=== PATIENT | male | born 1955 | race Caucasian/White ===

== ENCOUNTER 2018-01-17 14:54 | Inpatient (IN) | payer MEDICARE, MEDICAID ==
[~2018-01-17] VITALS: Ht 167.6 cm; Wt 140.0 kg
[2018-01-17] MEDS ORDERED: thiamine 100mg/ml 2ml inj. IV ONE (15:40)
[2018-01-17] MEDS ORDERED: normal saline 1000ml 1,000 ML IV ONE (15:40)
[2018-01-17 16:40] LABS: CLARITY,URINE CLEAR (Clear); COLOR,URINE YELLOW (Yellow); GLUCOSE, URINE NEGATIVE (Neg); KETONES,URINE NEGATIVE (Neg); LEUKOCYTE ESTERASE ,URINE NEGATIVE (Neg); NITRITES, URINE NEGATIVE (Neg); OCCULT BLOOD,URINE NEGATIVE (Neg); PROTEIN,URINE NEGATIVE (Neg); UA COLLECTION TYPE CLN CATCH MIDSTREAM
[2018-01-17 16:42] LABS: BASOPHILS % (AUTO) 0.2 % (0-1); EOSINOPHILS # (AUTO) 0.1 X10'3 (0-0.9); HEMOGLOBIN 13.6 g/dl (14.0-17.9); LYMPHOCYTES # (AUTO) 1.2 X10'3 (1.1-4.8); LYMPHOCYTES % (AUTO) 8.4 % (21-51); MEAN CORPUSCULAR HGB CONC 32.4 % (33.0-36.5); MEAN CORPUSCULAR VOLUME 83.3 FL (78-98); MEAN PLATELET VOLUME 9.1 FL (7.4-10.4); MONOCYTES # (AUTO) 0.5 X10'3 (0-0.9); MONOCYTES % (AUTO) 3.7 % (2-12); NEUTROPHILS % (AUTO) 86.7 % (42-75); PLATELET COUNT 240 X10'3 (140-440); RED BLOOD COUNT 5.04 X10'6 (4.70-6.10); RED CELL DISTRIBUTION WIDTH 15.4 % (11.5-14.5); WHITE BLOOD COUNT 13.9 X10'3 (4.5-11.0)
[2018-01-17 16:50] LABS: URINE AMPHETAMINE SCREEN NEGATIVE (Neg); URINE BARBITUATE SCREEN NEGATIVE (Neg); URINE BENZODIAZEPINES SCREEN NEGATIVE (Neg); URINE CANNABINOID SCREEN POSITIVE (Neg); URINE COCAINE SCREEN NEGATIVE (Neg); URINE METHADONE SCREEN NEGATIVE (Neg); URINE OPIATE SCREEN NEGATIVE (Neg); URINE PHENCYCLIDINE SCREEN NEGATIVE (Neg)
[2018-01-17 16:54] LABS: PARTIAL THROMBOPLASTIN TIME 25 SECONDS (22-32)
[2018-01-17 17:07] LABS: ALANINE AMINOTRANSFERASE 40 U/L (12-78); ALBUMIN 3.1 G/DL (3.4-5.0); ALBUMIN/GLOBULIN RATIO 0.7 (1.1-1.5); ALKALINE PHOSPHATASE 146 IU/L (46-116); ANION GAP 8 (8-16); ASPARTATE AMINO TRANSFERASE 24 U/L (10-37); BILIRUBIN,TOTAL 0.2 MG/DL (0.1-1.0); BLOOD UREA NITROGEN 17 MG/DL (7-18); BUN/CREATININE RATIO 16.7 (5.4-32.0); CALCIUM 9.1 MG/DL (8.5-10.1); CHLORIDE 104 MMOL/L (99-107); CREATINE KINASE 55 U/L (39-308); CREATININE 1.02 MG/DL (0.60-1.10); ETHANOL < 0.010 GM/DL (0.0-0.010); GLUCOSE 116 MG/DL (70-104); POTASSIUM 4.5 MMOL/L (3.5-5.1); SODIUM 140 MMOL/L (135-145); TOTAL CARBON DIOXIDE 27.9 MMOL/L (24-32); TOTAL PROTEIN 7.4 G/DL (6.4-8.2); eGFR 74 ML/MIN
[2018-01-17] MEDS ORDERED: iohexol 350MG/ML 100ml bottle IV ONE (18:07)
[2018-01-17] MEDS ORDERED: ondansetron/PF 4mg/2ml inj IV ONE (21:00)
[2018-01-17] MEDS ORDERED: temazepam 15mg capsule PO PRN (21:00)
[2018-01-17] MEDS ORDERED: acetaminophen 325mg tablet PO PRN ×2 (22:00)
[2018-01-17] MEDS ORDERED: bisacodyl 10mg suppository rectal RC PRN (22:00)
[2018-01-17] MEDS ORDERED: acetaminophen 650mg rectal suppository RC PRN (22:00)
[2018-01-17] MEDS ORDERED: magnesium hydroxide 30ml (MOM) UD suspension PO PRN (22:00)
[2018-01-17] MEDS ORDERED: diphenhydrAMINE 25mg capsule PO PRN (22:00)
[2018-01-17] MEDS ORDERED: metoprolol tartrate 1mg/ml inj IV PRN (22:00)
[2018-01-17] MEDS ORDERED: diphenhydrAMINE 50 mg/ml inj IV PRN (22:00)
[2018-01-17] MEDS ORDERED: mag hydrox/Alum hydrox/simeth 30ml oral suspension PO PRN (22:00)
[2018-01-17] MEDS ORDERED: HYDROmorphone 1 mg/ml syringe IV PRN (22:00)
[2018-01-17] MEDS ORDERED: morphine 2 MG/ML inj. syringe IV PRN (22:00)
[2018-01-17] MEDS ORDERED: hydrALAZINE 20mg/ml inj. IV PRN (22:00)
[2018-01-17] MEDS ORDERED: UNABLE TO OBTAIN (22:19)
[2018-01-17 22:36] LABS: HEMOGLOBIN A1C 5.9 % (4.5-6.2)
[2018-01-17] MEDS: normal saline 1000ml 1,000 ML IV SCH (22:40)
[2018-01-17] MEDS: aspirin 81mg tab.chew PO SCH (22:40)
[2018-01-17 22:50] LABS: PARTIAL THROMBOPLASTIN TIME 24 SECONDS (22-32); PROTHROMBIN TIME 10.1 SECONDS (9.0-12.0)
[2018-01-17 23:00] LABS: MAGNESIUM 1.9 MG/DL (1.5-2.4); PHOSPHORUS 3.6 MG/DL (2.3-4.5)
[2018-01-18] VITALS (7 sets, daily range): BP systolic 127–183; BP diastolic 62–110
[2018-01-18] MEDS: HYDROcodone/acetaminophen 10/325mg tab PO PRN (06:02)
[2018-01-18 06:50] LABS: BASOPHILS # (AUTO) 0.1 X10'3 (0-0.2); BASOPHILS % (AUTO) 0.6 % (0-1); EOSINOPHILS # (AUTO) 0.3 X10'3 (0-0.9); EOSINOPHILS % (AUTO) 2.9 % (0-6); HEMATOCRIT 38.2 % (42.0-52.0); HEMOGLOBIN 12.5 g/dl (14.0-17.9); LYMPHOCYTES # (AUTO) 2.2 X10'3 (1.1-4.8); LYMPHOCYTES % (AUTO) 21.7 % (21-51); MEAN CORPUSCULAR HEMOGLOBIN 27.4 PG (27.0-31.0); MEAN CORPUSCULAR HGB CONC 32.8 % (33.0-36.5); MEAN CORPUSCULAR VOLUME 83.4 FL (78-98); MEAN PLATELET VOLUME 9.7 FL (7.4-10.4); MONOCYTES # (AUTO) 0.8 X10'3 (0-0.9); MONOCYTES % (AUTO) 8.2 % (2-12); NEUTROPHILS # (AUTO) 6.9 X10'3 (1.8-7.7); NEUTROPHILS % (AUTO) 66.6 % (42-75); PLATELET COUNT 225 X10'3 (140-440); RED BLOOD COUNT 4.58 X10'6 (4.70-6.10); RED CELL DISTRIBUTION WIDTH 15.8 % (11.5-14.5); WHITE BLOOD COUNT 10.3 X10'3 (4.5-11.0)
[2018-01-18] MEDS: nicotine 21mg patch - 24 hr TD SCH (08:00)
[2018-01-18] MEDS: aspirin 81mg tab.chew PO SCH ×2 (08:00→12:30)
[2018-01-18] MEDS: docusate sod 100mg capsule PO SCH ×2 (08:00→22:28)
[2018-01-18] MEDS: nitroGLYCERIN 0.4mg/hour patch TD SCH (08:00)
[2018-01-18] MEDS: metoprolol tartrate 12.5mg (1/2 tablet) PO SCH ×2 (08:00→22:27)
[2018-01-18] MEDS ORDERED: atorvastatin 10mg tablet PO SCH (08:00)
[2018-01-18] MEDS: lisinopril 10 MG tablet PO SCH (08:00)
[2018-01-18 08:18] LABS: ALANINE AMINOTRANSFERASE 35 U/L (12-78); ALBUMIN 2.6 G/DL (3.4-5.0); ALBUMIN/GLOBULIN RATIO 0.7 (1.1-1.5); ALKALINE PHOSPHATASE 123 IU/L (46-116); ANION GAP 9 (8-16); ASPARTATE AMINO TRANSFERASE 23 U/L (10-37); BILIRUBIN,TOTAL 0.3 MG/DL (0.1-1.0); BLOOD UREA NITROGEN 17 MG/DL (7-18); BUN/CREATININE RATIO 14.7 (5.4-32.0); CALCIUM 8.6 MG/DL (8.5-10.1); CHLORIDE 105 MMOL/L (99-107); CHOL/HDL RATIO 5.4 (0.00-4.99); CHOLESTEROL 189 MG/DL (0-200); CREATININE 1.16 MG/DL (0.60-1.10); GLUCOSE 99 MG/DL (70-104); HDL CHOLESTEROL 35 MG/DL (35-60); LDL CHOLESTEROL 135 MG/DL (50-100); POTASSIUM 3.8 MMOL/L (3.5-5.1); SODIUM 140 MMOL/L (135-145); TOTAL CARBON DIOXIDE 25.9 MMOL/L (24-32); TOTAL PROTEIN 6.4 G/DL (6.4-8.2); TRIGLYCERIDES 91 MG/DL (20-135); eGFR 63 ML/MIN
[2018-01-18] MEDS: ondansetron/PF 4mg/2ml inj IV PRN (09:37)
[2018-01-18] MEDS: heparin, porcine 5000 units/ml vial SQ SCH ×2 (09:37→22:27)
[2018-01-18] MEDS: atorvastatin 20mg tablet PO SCH (11:05)
[2018-01-18] MEDS: carbidoba-levodopa 25-100mg tablet PO SCH ×2 (13:00→22:28)
[2018-01-18] MEDS ORDERED: aspirin 300mg supp.rect RC ONE (14:50)
[2018-01-18] MEDS: metoclopramide 5 mg/ml inj IV PRN (14:58)
[2018-01-18] MEDS: famotidine 20mg tablet PO SCH (22:28)
[2018-01-19 06:00] VITALS: BP 152/75
[2018-01-19] MEDS: atorvastatin 20mg tablet PO SCH (07:20)
[2018-01-19] MEDS: docusate sod 100mg capsule PO SCH ×2 (07:20→21:18)
[2018-01-19] MEDS: metoprolol tartrate 12.5mg (1/2 tablet) PO SCH ×2 (07:21→21:22)
[2018-01-19] MEDS: lisinopril 10 MG tablet PO SCH (07:22)
[2018-01-19] MEDS: carbidoba-levodopa 25-100mg tablet PO SCH ×3 (07:22→21:17)
[2018-01-19] MEDS: aspirin 81mg tab.chew PO SCH (07:22)
[2018-01-19] MEDS: nicotine 21mg patch - 24 hr TD SCH (07:23)
[2018-01-19] MEDS: heparin, porcine 5000 units/ml vial SQ SCH ×2 (07:23→21:18)
[2018-01-19] MEDS: nitroGLYCERIN 0.4mg/hour patch TD SCH (07:24)
[2018-01-19 08:19] LABS: BASOPHILS # (AUTO) 0.1 X10'3 (0-0.2); BASOPHILS % (AUTO) 0.8 % (0-1); EOSINOPHILS # (AUTO) 0.3 X10'3 (0-0.9); HEMATOCRIT 40.1 % (42.0-52.0); LYMPHOCYTES % (AUTO) 35.6 % (21-51); MEAN CORPUSCULAR HEMOGLOBIN 27.3 PG (27.0-31.0); MEAN CORPUSCULAR HGB CONC 32.4 % (33.0-36.5); MEAN CORPUSCULAR VOLUME 84.2 FL (78-98); MEAN PLATELET VOLUME 9.9 FL (7.4-10.4); MONOCYTES # (AUTO) 0.6 X10'3 (0-0.9); MONOCYTES % (AUTO) 6.7 % (2-12); NEUTROPHILS # (AUTO) 4.5 X10'3 (1.8-7.7); NEUTROPHILS % (AUTO) 52.9 % (42-75); PLATELET COUNT 234 X10'3 (140-440); RED BLOOD COUNT 4.77 X10'6 (4.70-6.10); RED CELL DISTRIBUTION WIDTH 15.8 % (11.5-14.5); WHITE BLOOD COUNT 8.6 X10'3 (4.5-11.0)
[2018-01-19 08:23] LABS: ALANINE AMINOTRANSFERASE 17 U/L (12-78); ALBUMIN 2.8 G/DL (3.4-5.0); ALBUMIN/GLOBULIN RATIO 0.7 (1.1-1.5); ALKALINE PHOSPHATASE 115 IU/L (46-116); ANION GAP 8 (8-16); ASPARTATE AMINO TRANSFERASE 23 U/L (10-37); BILIRUBIN,TOTAL 0.4 MG/DL (0.1-1.0); BLOOD UREA NITROGEN 15 MG/DL (7-18); BUN/CREATININE RATIO 13.2 (5.4-32.0); CALCIUM 8.8 MG/DL (8.5-10.1); CHLORIDE 107 MMOL/L (99-107); CREATININE 1.14 MG/DL (0.60-1.10); GLUCOSE 102 MG/DL (70-104); POTASSIUM 4.3 MMOL/L (3.5-5.1); SODIUM 143 MMOL/L (135-145); TOTAL PROTEIN 6.7 G/DL (6.4-8.2); eGFR 65 ML/MIN
[2018-01-19 10:00] VITALS: BP 92/50
[2018-01-19 18:00] VITALS: BP 128/69
[2018-01-19] MEDS: famotidine 20mg tablet PO SCH (21:18)
[2018-01-19 21:20] VITALS: BP 151/85
[2018-01-19] MEDS: normal saline 1000ml 1,000 ML IV SCH (21:57)
[2018-01-19 22:00] VITALS: BP 114/54
[2018-01-20 05:00] VITALS: BP 136/66
[2018-01-20 07:20] LABS: BASOPHILS # (AUTO) 0.1 X10'3 (0-0.2); BASOPHILS % (AUTO) 0.7 % (0-1); EOSINOPHILS # (AUTO) 0.3 X10'3 (0-0.9); EOSINOPHILS % (AUTO) 4.2 % (0-6); HEMATOCRIT 37.1 % (42.0-52.0); LYMPHOCYTES # (AUTO) 2.4 X10'3 (1.1-4.8); LYMPHOCYTES % (AUTO) 31.2 % (21-51); MEAN CORPUSCULAR HEMOGLOBIN 27.3 PG (27.0-31.0); MEAN CORPUSCULAR HGB CONC 32.5 % (33.0-36.5); MEAN PLATELET VOLUME 9.6 FL (7.4-10.4); MONOCYTES # (AUTO) 0.7 X10'3 (0-0.9); MONOCYTES % (AUTO) 8.9 % (2-12); NEUTROPHILS # (AUTO) 4.2 X10'3 (1.8-7.7); PLATELET COUNT 209 X10'3 (140-440); RED BLOOD COUNT 4.41 X10'6 (4.70-6.10); RED CELL DISTRIBUTION WIDTH 15.3 % (11.5-14.5); WHITE BLOOD COUNT 7.7 X10'3 (4.5-11.0)
[2018-01-20 07:35] LABS: ALANINE AMINOTRANSFERASE 19 U/L (12-78); ALBUMIN 2.5 G/DL (3.4-5.0); ALBUMIN/GLOBULIN RATIO 0.7 (1.1-1.5); ALKALINE PHOSPHATASE 105 IU/L (46-116); ANION GAP 5 (8-16); ASPARTATE AMINO TRANSFERASE 27 U/L (10-37); BILIRUBIN,TOTAL 0.4 MG/DL (0.1-1.0); BLOOD UREA NITROGEN 17 MG/DL (7-18); BUN/CREATININE RATIO 13.9 (5.4-32.0); CALCIUM 8.4 MG/DL (8.5-10.1); CHLORIDE 107 MMOL/L (99-107); CREATININE 1.22 MG/DL (0.60-1.10); GLUCOSE 95 MG/DL (70-104); POTASSIUM 4.2 MMOL/L (3.5-5.1); SODIUM 142 MMOL/L (135-145); TOTAL PROTEIN 6.2 G/DL (6.4-8.2); eGFR 60 ML/MIN
[2018-01-20] MEDS: nicotine 21mg patch - 24 hr TD SCH (08:00)
[2018-01-20] MEDS: docusate sod 100mg capsule PO SCH ×2 (08:04→20:09)
[2018-01-20] MEDS: atorvastatin 20mg tablet PO SCH (08:04)
[2018-01-20] MEDS: lisinopril 10 MG tablet PO SCH (08:07)
[2018-01-20] MEDS: metoprolol tartrate 12.5mg (1/2 tablet) PO SCH ×2 (08:07→20:09)
[2018-01-20] MEDS: heparin, porcine 5000 units/ml vial SQ SCH ×2 (08:08→20:10)
[2018-01-20] MEDS: nitroGLYCERIN 0.4mg/hour patch TD SCH (08:09)
[2018-01-20] MEDS: carbidoba-levodopa 25-100mg tablet PO SCH ×3 (08:10→20:09)
[2018-01-20] MEDS: aspirin 81mg tab.chew PO SCH (08:10)
[2018-01-20 11:46] VITALS: BP 118/67
[2018-01-20] MEDS ORDERED: NO HOME MEDS (13:07)
[2018-01-20 18:00] VITALS: BP 129/66
[2018-01-20] MEDS: famotidine 20mg tablet PO SCH (20:09)
[2018-01-20] MEDS ORDERED: ceFAZolin 2gm in dextrose, iso 100 ML IV ONE (21:05)
[2018-01-20] MEDS: cefazolin/dext.iso 2gm/50ml 50 ML IV ONE ×2 (21:15→22:22)
[2018-01-20 22:00] VITALS: BP 152/74
[2018-01-21] VITALS (24 sets, daily range): BP systolic 106–162; BP diastolic 48–78
[2018-01-21 07:17] LABS: BASOPHILS # (AUTO) 0.1 X10'3 (0-0.2); BASOPHILS % (AUTO) 0.8 % (0-1); EOSINOPHILS # (AUTO) 0.3 X10'3 (0-0.9); HEMATOCRIT 36.4 % (42.0-52.0); HEMOGLOBIN 11.8 g/dl (14.0-17.9); LYMPHOCYTES # (AUTO) 1.7 X10'3 (1.1-4.8); LYMPHOCYTES % (AUTO) 22.4 % (21-51); MEAN CORPUSCULAR HEMOGLOBIN 27.1 PG (27.0-31.0); MEAN CORPUSCULAR HGB CONC 32.4 % (33.0-36.5); MEAN CORPUSCULAR VOLUME 83.5 FL (78-98); MEAN PLATELET VOLUME 9.9 FL (7.4-10.4); MONOCYTES # (AUTO) 0.6 X10'3 (0-0.9); MONOCYTES % (AUTO) 8.4 % (2-12); NEUTROPHILS # (AUTO) 4.9 X10'3 (1.8-7.7); NEUTROPHILS % (AUTO) 64.4 % (42-75); PLATELET COUNT 207 X10'3 (140-440); RED BLOOD COUNT 4.36 X10'6 (4.70-6.10); RED CELL DISTRIBUTION WIDTH 15.5 % (11.5-14.5); WHITE BLOOD COUNT 7.7 X10'3 (4.5-11.0)
[2018-01-21] MEDS: PHENYLEPHRINE 10MG IN 250ML NS IV SCH ×5 (07:25→20:20)
[2018-01-21 07:28] LABS: PROTHROMBIN TIME 10.6 SECONDS (9.0-12.0)
[2018-01-21] MEDS ORDERED: heparin 10,000 units/1 ML INJ ONE (07:28)
[2018-01-21 07:36] LABS: ALANINE AMINOTRANSFERASE 24 U/L (12-78); ALBUMIN 2.6 G/DL (3.4-5.0); ALBUMIN/GLOBULIN RATIO 0.7 (1.1-1.5); ALKALINE PHOSPHATASE 103 IU/L (46-116); ANION GAP 6 (8-16); ASPARTATE AMINO TRANSFERASE 33 U/L (10-37); BILIRUBIN,TOTAL 0.3 MG/DL (0.1-1.0); BLOOD UREA NITROGEN 20 MG/DL (7-18); BUN/CREATININE RATIO 15.7 (5.4-32.0); CALCIUM 8.5 MG/DL (8.5-10.1); CHLORIDE 107 MMOL/L (99-107); CREATININE 1.27 MG/DL (0.60-1.10); GLUCOSE 99 MG/DL (70-104); POTASSIUM 4.4 MMOL/L (3.5-5.1); SODIUM 140 MMOL/L (135-145); TOTAL CARBON DIOXIDE 27.4 MMOL/L (24-32); TOTAL PROTEIN 6.3 G/DL (6.4-8.2); eGFR 57 ML/MIN
[2018-01-21] MEDS: heparin, porcine 5000 units/ml vial SQ SCH ×2 (07:53→19:46)
[2018-01-21] MEDS: aspirin 81mg tab.chew PO SCH (07:54)
[2018-01-21] MEDS: carbidoba-levodopa 25-100mg tablet PO SCH ×3 (07:54→20:07)
[2018-01-21] MEDS: lisinopril 10 MG tablet PO SCH (07:54)
[2018-01-21] MEDS: isosorbide mononitrate 30mg tab.SR.24H PO SCH (07:54)
[2018-01-21] MEDS: docusate sod 100mg capsule PO SCH ×2 (07:54→19:45)
[2018-01-21] MEDS: atorvastatin 20mg tablet PO SCH (07:54)
[2018-01-21] MEDS: nicotine 21mg patch - 24 hr TD SCH (07:54)
[2018-01-21] MEDS ORDERED: rocuronium 10mg/ml inj IV ONE ×2 (08:05→09:08)
[2018-01-21] MEDS ORDERED: propofol inj 20 ML IV ONE (08:05)
[2018-01-21] MEDS: metoprolol tartrate 12.5mg (1/2 tablet) PO SCH ×2 (08:11→19:46)
[2018-01-21] MEDS ORDERED: cloNIDine hcl/PF 100mcg/ml inj ONE (09:08)
[2018-01-21] MEDS ORDERED: phenylephrine 10mg/ml inj. ONE (09:08)
[2018-01-21] MEDS ORDERED: nitroGLYCERIN in D5W 50mg/250ml (Tridil) infusion IV ONE (09:08)
[2018-01-21] MEDS ORDERED: ROPIVAcaine 0.5% (5mg/ml) 30ml vial ONE (09:08)
[2018-01-21] MEDS ORDERED: dexamethasone sod phosphate 10mg/ml inj ONE (09:08)
[2018-01-21] MEDS ORDERED: sevoflurane 250ml liquid IH ONE (09:08)
[2018-01-21] MEDS ORDERED: fentaNYL/PF 50MCG/1 ML 2ML syringe ONE (09:08)
[2018-01-21] MEDS ORDERED: midazolam 2 mg/2 ml injection ONE (09:09)
[2018-01-21] MEDS ORDERED: ringers solution, lacted 1,000 ML IV SCH ×2 (10:19→12:10)
[2018-01-21] MEDS ORDERED: ondansetron/PF 4mg/2ml inj IV PRN ×2 (10:20→12:10)
[2018-01-21] MEDS ORDERED: morphine 4 MG/ML inj SYRINge IV PRN ×4 (10:20→12:10)
[2018-01-21] MEDS ORDERED: meperidine/PF 25mg/ml syringe IV PRN ×6 (10:20→12:10)
[2018-01-21] MEDS ORDERED: proCHLORperazine 10 MG/2 ml inj IV PRN ×2 (10:20→12:10)
[2018-01-21] MEDS ORDERED: ePHEDrine 50MG/ML INJ. ONE (11:44)
[2018-01-21] MEDS ORDERED: heparin 1,000unit/ml 10ml vial 10 ML ONE (11:44)
[2018-01-21] MEDS ORDERED: glycopyrrolate 0.2mg/ml inj ONE (11:44)
[2018-01-21] MEDS ORDERED: neostigmine methylsulfate 1 MG/ML 10ml vial ONE (11:44)
[2018-01-21] MEDS ORDERED: albumin (Human) 5% 250ml 250 ML IV ONE (13:10)
[2018-01-21] MEDS: nitroGLYCERIN-Tridil 50MG/D5W 250 ML IV SCH (14:15)
[2018-01-21] MEDS: ceFAZolin inj. 1,000 MG in dextrose 5%-water 50ml 50 ML IV SCH (15:58)
[2018-01-21] MEDS: ondansetron/PF 4mg/2ml inj IV PRN (19:10)
[2018-01-21] MEDS ORDERED: LIDOcaine 2% 10ml TOPICAL JELLY (Urojet) MM ONE (19:40)
[2018-01-21] MEDS: HYDROcodone/acetaminophen 10/325mg tab PO PRN (20:06)
[2018-01-21] MEDS: famotidine 20mg tablet PO SCH (20:07)
[2018-01-21] MEDS: metoclopramide 5 mg/ml inj IV PRN (20:15)
[2018-01-21] MEDS: normal saline 1000ml 1,000 ML IV SCH (21:57)
[2018-01-22] VITALS (24 sets, daily range): BP systolic 115–166; BP diastolic 58–86
[2018-01-22] MEDS: PHENYLEPHRINE 10MG IN 250ML NS IV SCH ×8 (00:05→23:42)
[2018-01-22] MEDS: ceFAZolin inj. 1,000 MG in dextrose 5%-water 50ml 50 ML IV SCH ×2 (00:16→08:26)
[2018-01-22 02:19] LABS: BASOPHILS # (AUTO) 0.1 X10'3 (0-0.2); BASOPHILS % (AUTO) 0.3 % (0-1); EOSINOPHILS % (AUTO) 0 % (0-6); HEMATOCRIT 35.1 % (42.0-52.0); HEMOGLOBIN 11.4 g/dl (14.0-17.9); LYMPHOCYTES # (AUTO) 1.8 X10'3 (1.1-4.8); LYMPHOCYTES % (AUTO) 11.1 % (21-51); MEAN CORPUSCULAR HEMOGLOBIN 27.3 PG (27.0-31.0); MEAN CORPUSCULAR HGB CONC 32.4 % (33.0-36.5); MEAN CORPUSCULAR VOLUME 84.2 FL (78-98); MEAN PLATELET VOLUME 10.2 FL (7.4-10.4); MONOCYTES # (AUTO) 0.6 X10'3 (0-0.9); MONOCYTES % (AUTO) 3.6 % (2-12); NEUTROPHILS # (AUTO) 13.6 X10'3 (1.8-7.7); PLATELET COUNT 233 X10'3 (140-440); RED BLOOD COUNT 4.17 X10'6 (4.70-6.10); RED CELL DISTRIBUTION WIDTH 15.9 % (11.5-14.5)
[2018-01-22 02:25] LABS: ALANINE AMINOTRANSFERASE 14 U/L (12-78); ALBUMIN 2.9 G/DL (3.4-5.0); ALBUMIN/GLOBULIN RATIO 0.9 (1.1-1.5); ALKALINE PHOSPHATASE 97 IU/L (46-116); ANION GAP 10 (8-16); ASPARTATE AMINO TRANSFERASE 22 U/L (10-37); BILIRUBIN,TOTAL 0.2 MG/DL (0.1-1.0); BLOOD UREA NITROGEN 15 MG/DL (7-18); CALCIUM 8.4 MG/DL (8.5-10.1); CHLORIDE 107 MMOL/L (99-107); CREATININE 1.07 MG/DL (0.60-1.10); GLUCOSE 143 MG/DL (70-104); POTASSIUM 4.4 MMOL/L (3.5-5.1); SODIUM 139 MMOL/L (135-145); TOTAL CARBON DIOXIDE 22.5 MMOL/L (24-32); TOTAL PROTEIN 6.3 G/DL (6.4-8.2); eGFR 70 ML/MIN
[2018-01-22] MEDS: docusate sod 100mg capsule PO SCH ×2 (07:35→20:08)
[2018-01-22] MEDS: isosorbide mononitrate 30mg tab.SR.24H PO SCH (07:35)
[2018-01-22] MEDS: lisinopril 10 MG tablet PO SCH (07:35)
[2018-01-22] MEDS: aspirin 81mg tab.chew PO SCH (07:35)
[2018-01-22] MEDS: heparin, porcine 5000 units/ml vial SQ SCH ×2 (07:35→20:08)
[2018-01-22] MEDS: atorvastatin 20mg tablet PO SCH (07:36)
[2018-01-22] MEDS: nicotine 21mg patch - 24 hr TD SCH (07:37)
[2018-01-22] MEDS: carbidoba-levodopa 25-100mg tablet PO SCH ×3 (07:40→20:08)
[2018-01-22] MEDS: metoprolol tartrate 12.5mg (1/2 tablet) PO SCH ×2 (07:41→19:00)
[2018-01-22] MEDS: famotidine 20mg tablet PO SCH (20:08)
[2018-01-23] VITALS (19 sets, daily range): BP systolic 94–143; BP diastolic 47–89
[2018-01-23] MEDS: HYDROcodone/acetaminophen 10/325mg tab PO PRN ×4 (02:19→22:05)
[2018-01-23] MEDS: PHENYLEPHRINE 10MG IN 250ML NS IV SCH ×2 (02:45→06:05)
[2018-01-23 02:47] LABS: BASOPHILS # (AUTO) 0.1 X10'3 (0-0.2); BASOPHILS % (AUTO) 0.8 % (0-1); EOSINOPHILS # (AUTO) 0.2 X10'3 (0-0.9); EOSINOPHILS % (AUTO) 1.5 % (0-6); HEMATOCRIT 31.8 % (42.0-52.0); HEMOGLOBIN 10.3 g/dl (14.0-17.9); LYMPHOCYTES # (AUTO) 3.5 X10'3 (1.1-4.8); LYMPHOCYTES % (AUTO) 28.9 % (21-51); MEAN CORPUSCULAR HEMOGLOBIN 27.3 PG (27.0-31.0); MEAN CORPUSCULAR HGB CONC 32.5 % (33.0-36.5); MEAN PLATELET VOLUME 10.4 FL (7.4-10.4); MONOCYTES # (AUTO) 0.8 X10'3 (0-0.9); MONOCYTES % (AUTO) 6.3 % (2-12); NEUTROPHILS # (AUTO) 7.5 X10'3 (1.8-7.7); NEUTROPHILS % (AUTO) 62.5 % (42-75); PLATELET COUNT 198 X10'3 (140-440); RED BLOOD COUNT 3.78 X10'6 (4.70-6.10); RED CELL DISTRIBUTION WIDTH 15.5 % (11.5-14.5)
[2018-01-23 03:13] LABS: ALBUMIN 2.4 G/DL (3.4-5.0); ANION GAP 7 (8-16); BLOOD UREA NITROGEN 16 MG/DL (7-18); BUN/CREATININE RATIO 14.7 (5.4-32.0); CALCIUM 7.9 MG/DL (8.5-10.1); CHLORIDE 109 MMOL/L (99-107); CREATININE 1.09 MG/DL (0.60-1.10); GLUCOSE 108 MG/DL (70-104); POTASSIUM 4.3 MMOL/L (3.5-5.1); SODIUM 140 MMOL/L (135-145); TOTAL CARBON DIOXIDE 23.8 MMOL/L (24-32); eGFR 68 ML/MIN
[2018-01-23 03:16] LABS: PLATELET ESTIMATE NORMAL
[2018-01-23 03:17] LABS: LARGE PLATELETS FEW
[2018-01-23] MEDS: nitroGLYCERIN-Tridil 50MG/D5W 250 ML IV SCH (06:24)
[2018-01-23] MEDS: carbidoba-levodopa 25-100mg tablet PO SCH ×3 (07:42→21:57)
[2018-01-23] MEDS: atorvastatin 20mg tablet PO SCH (07:42)
[2018-01-23] MEDS: docusate sod 100mg capsule PO SCH ×2 (07:42→21:58)
[2018-01-23] MEDS: heparin, porcine 5000 units/ml vial SQ SCH ×2 (07:42→21:58)
[2018-01-23] MEDS: isosorbide mononitrate 30mg tab.SR.24H PO SCH (07:42)
[2018-01-23] MEDS: aspirin 81mg tab.chew PO SCH (07:44)
[2018-01-23] MEDS: lisinopril 10 MG tablet PO SCH (07:44)
[2018-01-23] MEDS: nicotine 21mg patch - 24 hr TD SCH (07:45)
[2018-01-23] MEDS: metoprolol tartrate 12.5mg (1/2 tablet) PO SCH ×2 (07:45→21:57)
[2018-01-23] MEDS: normal saline 1000ml 1,000 ML IV SCH (21:57)
[2018-01-23] MEDS: famotidine 20mg tablet PO SCH (21:57)
[2018-01-24 03:00] VITALS: BP 132/68
[2018-01-24 06:00] VITALS: BP 133/67
[2018-01-24] MEDS: atorvastatin 20mg tablet PO SCH (08:23)
[2018-01-24] MEDS: metoprolol tartrate 12.5mg (1/2 tablet) PO SCH ×2 (08:23→20:34)
[2018-01-24] MEDS: docusate sod 100mg capsule PO SCH ×2 (08:23→20:36)
[2018-01-24] MEDS: HYDROcodone/acetaminophen 10/325mg tab PO PRN ×2 (08:24→20:35)
[2018-01-24] MEDS: isosorbide mononitrate 30mg tab.SR.24H PO SCH (08:24)
[2018-01-24] MEDS: lisinopril 10 MG tablet PO SCH (08:24)
[2018-01-24] MEDS: nicotine 21mg patch - 24 hr TD SCH (08:25)
[2018-01-24] MEDS: aspirin 81mg tab.chew PO SCH (08:25)
[2018-01-24] MEDS: heparin, porcine 5000 units/ml vial SQ SCH ×2 (08:25→20:36)
[2018-01-24] MEDS: carbidoba-levodopa 25-100mg tablet PO SCH ×3 (10:56→20:39)
[2018-01-24 11:00] VITALS: BP 111/69
[2018-01-24] MEDS ORDERED: ipratropium/albuterol 3ml nebule NEB PRN (11:10)
[2018-01-24] MEDS ORDERED: LISI10TA4 PO (11:14)
[2018-01-24] MEDS ORDERED: METO25TA6 PO (11:14)
[2018-01-24] MEDS ORDERED: FAMO20TA8 PO (11:14)
[2018-01-24] MEDS ORDERED: ATOR20TA66 PO (11:14)
[2018-01-24] MEDS ORDERED: IPRA4AER IH (11:14)
[2018-01-24] MEDS ORDERED: CARB1TAB36 PO (11:14)
[2018-01-24] MEDS ORDERED: PRED20TA PO (11:14)
[2018-01-24] MEDS ORDERED: ASPI-1265 PO (11:14)
[2018-01-24] MEDS ORDERED: ISOS30TA6 PO (11:14)
[2018-01-24] MEDS ORDERED: NICO-687 TD (11:14)
[2018-01-24] MEDS: predniSONE 20 mg tablet PO SCH (13:45)
[2018-01-24 15:00] VITALS: BP 98/61
[2018-01-24] MEDS: ipratropium/albuterol 3ml nebule NEB SCH ×3 (15:04→23:30)
[2018-01-24] MEDS: metoclopramide 5 mg/ml inj IV PRN (18:37)
[2018-01-24 19:00] VITALS: BP 137/72
[2018-01-24] MEDS: famotidine 20mg tablet PO SCH (20:34)
[2018-01-24 23:00] VITALS: BP 121/61
[2018-01-25] MEDS: HYDROcodone/acetaminophen 10/325mg tab PO PRN ×2 (01:47→08:45)
[2018-01-25 03:00] VITALS: BP 140/66
[2018-01-25 06:00] VITALS: BP 158/87
[2018-01-25] MEDS: ipratropium/albuterol 3ml nebule NEB SCH (06:49)
[2018-01-25 08:44] VITALS: BP_SYST 187
[2018-01-25] MEDS: metoprolol tartrate 12.5mg (1/2 tablet) PO SCH (08:44)
[2018-01-25] MEDS: lisinopril 10 MG tablet PO SCH (08:44)
[2018-01-25] MEDS: aspirin 81mg tab.chew PO SCH (08:45)
[2018-01-25] MEDS: isosorbide mononitrate 30mg tab.SR.24H PO SCH (08:45)
[2018-01-25] MEDS: docusate sod 100mg capsule PO SCH (08:45)
[2018-01-25] MEDS: atorvastatin 20mg tablet PO SCH (08:45)
[2018-01-25] MEDS: carbidoba-levodopa 25-100mg tablet PO SCH (08:45)
[2018-01-25] MEDS: predniSONE 20 mg tablet PO SCH (08:46)
[2018-01-25] MEDS: heparin, porcine 5000 units/ml vial SQ SCH (08:46)
== END 2018-01-25 09:05 | disposition home or self-care (01) | DRG 37 ==
LOC: ER 14:54 → ED HOLD 21:57 → ORTHO 4S 23:25 → PAS IN 01-21 08:45 → CICU 2S 01-21 13:00 → PCU 3S 01-23 15:31
PROVIDERS: ADMIT Family Medicine; ATTEND Family Medicine
PROC: B3251ZZ Computerized Tomography (CT Scan) of Bilateral Common Carotid Arteries using Low Osmolar Contrast (ICD-10-PCS; 2018-01-17)
PROC: B32G1ZZ Computerized Tomography (CT Scan) of Bilateral Vertebral Arteries using Low Osmolar Contrast (ICD-10-PCS; 2018-01-17)
PROC: B3281ZZ Computerized Tomography (CT Scan) of Bilateral Internal Carotid Arteries using Low Osmolar Contrast (ICD-10-PCS; 2018-01-17)
PROC: 03CL0ZZ Extirpation of Matter from Left Internal Carotid Artery, Open Approach (ICD-10-PCS; 2018-01-21)
PROC: 03UL0KZ Supplement Left Internal Carotid Artery with Nonautologous Tissue Substitute, Open Approach (ICD-10-PCS; 2018-01-21)
PROC: 4A10X4Z Monitoring of Central Nervous Electrical Activity, External Approach (ICD-10-PCS; 2018-01-21)
PROC: 03CJ0ZZ Extirpation of Matter from Left Common Carotid Artery, Open Approach (ICD-10-PCS; principal; 2018-01-21 09:08)
DX: I65.22 Occlusion and stenosis of left carotid artery (principal); I21.A1 Myocardial infarction type 2; I16.1 Hypertensive emergency; I69.351 Hemiplegia and hemiparesis following cerebral infarction affecting right dominant side; I25.10 Atherosclerotic heart disease of native coronary artery without angina pectoris; G20 Parkinson's disease; F17.200 Nicotine dependence, unspecified, uncomplicated; N18.3 Chronic kidney disease, stage 3 (moderate); Z53.21 Procedure and treatment not carried out due to patient leaving prior to being seen by health care provider; I12.9 Hypertensive chronic kidney disease with stage 1 through stage 4 chronic kidney disease, or unspecified chronic kidney disease; J44.9 Chronic obstructive pulmonary disease, unspecified; I95.9 Hypotension, unspecified; Z59.0 Homelessness; Z56.0 Unemployment, unspecified; Z95.1 Presence of aortocoronary bypass graft; Z99.3 Dependence on wheelchair; I69.321 Dysphasia following cerebral infarction; I69.322 Dysarthria following cerebral infarction; Z88.2 Allergy status to sulfonamides; Z79.899 Other long term (current) drug therapy
CPT/HCPCS: 36415; 70450; 70496; 70498; 70551; 71045; 73030; 80048; 80053; 80061; 80305; 80320; 81003; 82550; 82948; 83036; 83605; 83690; 83735; 83880; 84100; 84443; 84484; 85025; 85610; 85730; 86885; 86900; 86901; 87070; 88300; 88305; 93005; 93306; 93880; 94640; 94760; 95813; 95816; 96361; 96374; 96375; 97162; 97164; 97530; 97542; 99285; A6257; A6258; A6402; A7000; C1768; C1887; G0378; J0360; J0690; J0735; J1100; J1644; J2175; J2250; J2370; J2405; J2704; J2710; J2765; J2795; J3010; J3411; J3490; J7030; J7060; J7120; J7512; P9045; Q9967